=== PATIENT | female | born 1985 | race American Indian/Alaskan Native ===

== ENCOUNTER 2019-07-14 17:02 | Emergency (ER) | payer SELFPAY ==
--- NOTE | 2019-07-14 17:10 | Emergency Department Report ---
Blank Doc - Documentation Documentation: 34-year-old female that presents with right sided neck pain with radiation to right arm. This initial assessment/diagnostic orders/clinical plan/treatment(s) is/are subject to change based on patient's health status, clinical progression and re- assessment by fellow clinical providers in the ED. Further treatment and workup at subsequent clinical providers discretion. Patient/guardians urged not to elope from the ED as their condition may be serious if not clinically assessed and managed. Initial orders include: 1- Patient sent to [facility] for further evaluation and treatment 2- xray
[2019-07-14 17:11] VITALS: BP 167/86
--- NOTE | 2019-07-14 17:46 | XRay Report ---
CERVICAL SPINE, AP AND LATERAL VIEWS 07/14/2019 INDICATION / CLINICAL INFORMATION: neck pain. COMPARISON: None available. FINDINGS: Moderate degenerative changes are identified at the C5-C6 and C6-C7 levels. No evidence of acute fracture. No subluxation. The patient is in a moderate degree of flexion in the lateral projection that may be due to muscle sp asm or positioning. No prevertebral soft tissue abnormalities. Signer Name: Bennett Pedro MD Signed: 07/14/2019 5:42 PM Workstation Name: [id number]
[2019-07-14] MEDS ORDERED: IBUPROFEN PO ONE (18:32)
[2019-07-14] MEDS ORDERED: ZOFRAN ODT PO ONE (19:56)
[2019-07-14] MEDS ORDERED: PERCOCET 5/325 PO ONE (19:56)
[2019-07-14] MEDS ORDERED: DECADRON IM ONE (19:56)
--- NOTE | 2019-07-14 22:00 | Emergency Department Report ---
ED General Adult HPI - General Chief complaint: Back Pain/Injury Stated complaint: NERVE BACK PAIN Time Seen by Provider: 07/14/19 17:09 Source: patient Mode of arrival: Ambulatory Limitations: No Limitations - History of Present Illness Initial comments: Patient is a 34 year-old female with no past medical history presents to the ED with complaint of acute onset nontraumatic persistent severe right lateral neck pain that radiates to the right shoulder, posterior right shoulder and diffusely in his right arm with tingling sensations distally for the last 1 week. Patient denies chest pain, shortness of breath, right arm weakness, loss of consciousness, fall, traumatic injury, heavy lifting, nausea, vomiting, speech changes, dizziness, headache, diaphoresis or lower back pain and abdominal pain. MD Complaint: Right shoulder and right lateral neck apin -: Sudden, week(s) (1) Location: neck (right lateral), right, upper extremity (shoulder) Radiation: neck (right lateral shoulder), extremity (right shoulder) Severity scale (0 -10): 9 Quality: aching, sharp, constant Consistency: constant Improves with: none Worsens with: none Associated Symptoms: denies other symptoms. denies: confusion, chest pain, cough, diaphoresis, fever/chills, headaches, loss of appetite, malaise, nausea/vomiting, shortness of breath, syncope, weakness Treatments Prior to Arrival: none - Related Data Previous Rx's Medication Instructions Recorded Last Taken Type Ketorolac [Toradol] 10 mg PO Q8H PRN #20 tablet 07/14/19 Unknown Rx Prednisone [predniSONE 10 mg 10 mg PO .TAPER #21 tab.ds.pk 07/14/19 Unknown Rx (6-Day Pack, 21 Tabs)] methOCARBAMOL [Robaxin TAB] 750 mg PO Q12H PRN #24 tab 07/14/19 Unknown Rx traMADol [Ultram] 50 mg PO Q6HR PRN #12 tablet 07/14/19 Unknown Rx Allergies Allergy/AdvReac Type Severity Reaction Status Date / Time No Known Allergies Allergy Unverified 07/14/19 17:04 ED Review of Systems ROS: Stated complaint: NERVE BACK PAIN Other details as noted in HPI Constitutional: denies: chills, fever Eyes: denies: eye pain, eye discharge, vision change ENT: denies: ear pain, throat pain Respiratory: denies: cough, shortness of breath, wheezing Cardiovascular: denies: chest pain, palpitations Endocrine: no symptoms reported Gastrointestinal: denies: abdominal pain, nausea, diarrhea Genitourinary: denies: urgency, dysuria, discharge Musculoskeletal: arthralgia (RIGHT SHOULDER AND ARM), other (RIGHT LATERAL NECK PAIN). denies: back pain, joint swelling Skin: denies: rash, lesions Neurological: denies: headache, weakness, paresthesias Psychiatric: denies: anxiety, depression Hematological/Lymphatic: denies: easy bleeding, easy bruising ED Past Medical Hx - Past Medical History Previous Medical History?: No - Surgical History Past Surgical History?: Yes Additional Surgical History: BACK SURGERY 2018 - Social History Smoking Status: Never Smoker Substance Use Type: None - Medications Home Medications: Home Medications Medication Instructions Recorded Confirmed Last Taken Type Ketorolac [Toradol] 10 mg PO Q8H PRN #20 tablet 07/14/19 Unknown Rx Prednisone [predniSONE 10 mg 10 mg PO .TAPER #21 tab.ds.pk 07/14/19 Unknown Rx (6-Day Pack, 21 Tabs)] methOCARBAMOL [Robaxin TAB] 750 mg PO Q12H PRN #24 tab 07/14/19 Unknown Rx traMADol [Ultram] 50 mg PO Q6HR PRN #12 tablet 07/14/19 Unknown Rx ED Physical Exam - General Limitations: No Limitations General appearance: alert, in no apparent distress - Head Head exam: Present: atraumatic, normocephalic, normal inspection - Eye Eye exam: Present: normal appearance, PERRL, EOMI Pupils: Present: normal accommodation - ENT ENT exam: Present: normal exam, normal orophraynx, mucous membranes moist, TM's normal bilaterally, normal external ear exam - Neck Neck exam: Present: normal inspection, tenderness (Palpable right lateral trapezius and SCM muscle tenderness), full ROM. Absent: meningismus, lymphadenopathy - Respiratory Respiratory exam: Present: normal lung sounds bilaterally. Absent: respiratory distress, wheezes, rales, rhonchi, chest wall tenderness - Cardiovascular Cardiovascular Exam: Present: regular rate, normal rhythm, normal heart sounds. Absent: systolic murmur, diastolic murmur, rubs, gallop - GI/Abdominal GI/Abdominal exam: Present: soft, normal bowel sounds. Absent: tenderness, hyperactive bowel sounds, hypoactive bowel sounds, organomegaly - Extremities Exam Extremities exam: Present: normal inspection, full ROM, tenderness (Right shoulder and arm tenderness), normal capillary refill. Absent: pedal edema - Back Exam Back exam: Present: normal inspection, full ROM. Absent: tenderness, CVA tenderness (R), muscle spasm, paraspinal tenderness - Neurological Exam Neurological exam: Present: alert, oriented X3, CN II-XII intact, normal gait, reflexes normal - Psychiatric Psychiatric exam: Present: normal affect, normal mood - Skin Skin exam: Present: warm, dry, intact, normal color. Absent: rash ED Course Vital Signs 07/14/19 07/14/19 17:10 20:28 Temperature 98.2 F Pulse Rate 79 Respiratory 19 20 Rate Blood Pressure 167/86 [Left] O2 Sat by Pulse 99 Oximetry - Reevaluation(s) Reevaluation #1: 07/14/19 22:06 This 34-year-old female presented to the ED with complaint of right lateral neck and arm pain with tingling sensation for one week. In the ED, patient is alert and oriented 3 and is not in distress but appears to be in pain. Patient was treated for pain in the ED and C-spines x-ray shows no acute cervical spine fractures or subluxations. On reevaluation, patient's pain is well controlled with medication, and patient was discharged home on pain medications and muscle relaxants and advised to follow-up with her primary care physician in 7-10 days for reevaluation or return to the ED immediately if symptoms get worse. ED Medical Decision Making - Radiology Data Radiology results: report reviewed, image reviewed C-spine x-ray shows no acute fractures or subluxations. - Medical Decision Making This 34-year-old female presented to the ED with complaint of right lateral neck and arm pain with tingling sensation for one week. In the ED, patient is alert and oriented 3 and is not in distress but appears to be in pain. Patient was treated for pain in the ED and C-spines x-ray shows no acute cervical spine fractures or subluxations. On reevaluation, patient's pain is well controlled with medication, and patient was discharged home on pain medications and muscle relaxants and advised to follow-up with her primary care physician in 7-10 days for reevaluation or return to the ED immediately if symptoms get worse - Differential Diagnosis cervical radiculopathy; muscle strain of right arm; cervical sprain Critical care attestation.: If time is entered above; I have spent that time in minutes in the direct care of this critically ill patient, excluding procedure time. ED Disposition Clinical Impression: Cervical radiculopathy, Pain of right upper extremity, Cervical paraspinal muscle spasm Muscle strain of right shoulder Qualifiers: Encounter type: initial encounter Qualified Code(s): S46.911A - Strain of unspecified muscle, fascia and tendon at shoulder and upper arm level, right arm, initial encounter Disposition: TO HOME OR SELFCARE Is pt being admited?: No Does the pt Need Aspirin: No Condition: Stable Instructions: Muscle Strain (ED), Cervical Radiculopathy (ED), Cervical Sprain (ED) Additional Instructions: Take medication with food, drink plenty of fluids and follow up with your primary care physician in 7-10 days for reevaluation. Return to the ED immediately if symptoms get worse. Prescriptions: Prednisone [predniSONE 10 mg (6-Day Pack, 21 Tabs)] 10 mg PO .TAPER #21 tab.ds.pk methOCARBAMOL [Robaxin TAB] 750 mg PO Q12H PRN #24 tab PRN Reason: Muscle Spasm Ketorolac [Toradol] 10 mg PO Q8H PRN #20 tablet PRN Reason: Pain traMADol [Ultram] 50 mg PO Q6HR PRN #12 tablet PRN Reason: Pain Referrals: PRIMARY CARE, [Primary Care Provider] - 3-5 Days Forms: Work/School Release Form(ED) Time of Disposition: 21:58 Print Language: AZERI
== END 2019-07-14 22:15 | disposition home or self-care (01) ==
LOC: ED 17:02
DX: S46.911A Strain of unspecified muscle, fascia and tendon at shoulder and upper arm level, right arm, initial encounter (principal); M54.12 Radiculopathy, cervical region; Z98.890 Other specified postprocedural states; X58.XXXA Exposure to other specified factors, initial encounter; Y93.89 Activity, other specified; Y92.89 Other specified places as the place of occurrence of the external cause; Y99.8 Other external cause status
CPT/HCPCS: 72040; 96372; 99283; J1100; Q0162